=== PATIENT | female | born 1970 | race Caucasian/White ===

== ENCOUNTER 2024-09-08 14:25 | Outpatient (OUT) | payer MEDICARE, OTHER, SELFPAY ==
--- NOTE | 2024-09-08 14:34 | ECG_ITS ---
[facility] Test Date: 2024-09-08 Pat Name: [address] Department: Room: - Gender: Female Hat Block Bench Hand: : 1970 Requested By: KATYA SHEN Order Number: [id number] Reading MD: YOKO ROBLES M.D. Measurements Intervals [place] Rate: 81 P: 17 OR: 162 QRS: -17 QRSD: 85 T: 48 QT: 391 QTc: 456 Interpretive Statements SINUS RHYTHM Normal ECG No previous ECG available for comparison Electronically Signed On 09-08-2024 20:22:04 EDT by YOKO ROBLES M.D.
[2024-09-08 16:03] LABS: Anion Gap 13.8; BUN Creatinine Ratio 12.3; Carbon Dioxide 29.9 mmol/L (21.0-32.0); Chloride 103 mmol/L (98-107); Estimated GFR (African America >60 (>=60 mL/min/1.73m^2); Estimated GFR (Non-African Ame 50 (>=60 mL/min/1.73m^2); Glucose 154 mg/dL (74-106); Potassium 3.7 mmol/L (3.5-5.1); Sodium 143 mmol/L (136-145)
== END 2024-09-08 14:26 | disposition home or self-care (01) ==
PROVIDERS: PCP Internal Medicine; Visit Provider Obstetrics & Gynecology
DX: Z01.810 Encounter for preprocedural cardiovascular examination (principal); Z01.812 Encounter for preprocedural laboratory examination; R10.2 Pelvic and perineal pain; N93.9 Abnormal uterine and vaginal bleeding, unspecified
CPT/HCPCS: 80048; 93005

== ENCOUNTER 2024-10-02 13:42 | Outpatient (OUT) | payer MEDICARE, OTHER, SELFPAY | END 2024-10-02 13:43 | disposition home or self-care (01) | LOC: PST 13:42 | PROVIDERS: PCP Internal Medicine; Visit Provider Obstetrics & Gynecology | DX: Z01.818 Encounter for other preprocedural examination (principal); R10.2 Pelvic and perineal pain; N93.9 Abnormal uterine and vaginal bleeding, unspecified ==

== ENCOUNTER 2024-10-16 07:55 | Day surgery (SDC) | payer MEDICARE, OTHER, SELFPAY ==
[2024-09-08 15:10] VITALS: BP 124/80; PULSE 90; TEMP 36.3; O2SAT 98; BMI 54.8
[2024-10-16 08:02] VITALS: BP 138/83; PULSE 92; TEMP 36.6; O2SAT 96; BMI 55.1
[2024-10-16 08:07] LABS: Basophils Absolute Auto 0.1 10^3/uL (0.0-0.1); Basophils Percent Auto 0.8 % (0.2-2.0); Eosinophils Absolute Auto 0.2 10^3/uL (0.0-0.7); Eosinophils Percent Auto 2.7 % (0.9-7.0); Hematocrit 37.8 % (36.0-48.0); Hemoglobin 12.2 g/dL (12.0-16.0); Immature Granulocytes Abs Auto 0.06 10^3/uL (0.00-0.03); Immature Granulocytes Pct Auto 0.8 % (0.0-0.5); Lymphocytes Absolute Auto 2.8 10^3/uL (1.2-3.8); Lymphocytes Percent Auto 36.7 % (20.5-60.0); Mean Corpuscular HGB Conc 32.3 g/dL (29.9-35.2); Mean Corpuscular Hemoglobin 26.1 pg (26.7-34.0); Mean Corpuscular Volume 80.9 fL (81.0-99.0); Mean Platelet Volume 8.7 fL (9.5-13.5); Monocytes Absolute Auto 0.5 10^3/uL (0.3-0.8); Monocytes Percent Auto 6.6 % (1.7-12.0); Neutrophils Absolute Auto 3.9 10^3/uL (1.4-6.5); Neutrophils Percent Auto 52.4 % (43.0-75.0); Platelet Count 258 10^3/uL (150-450); Red Blood Count 4.67 10^6/uL (4.20-5.40); Red Cell Distribution Width 13.6 % (11.0-15.0); White Blood Count 7.5 10^3/uL (4.0-11.0)
[2024-10-16 08:41] LABS: HCG Quantitative <1 mIU/mL
[2024-10-16] MEDS: LACTATED RINGER'S SOLUTION 1,000 ML 50 ML IV (08:41)
--- NOTE | 2024-10-16 11:17 | PM.ONB ---
Brief Operative Note Date of procedure: 10/16/24 Pre-op diagnosis general: thickend endometrial lining, pelvic pain, aub Post-op diagnosis: same as pre-op Procedure: NAME OF PROCEDURE: [ D&c hysteroscopy ] finding unable to perform dt cervical stenosis PROCEDURE: The patient was taken back to the Operating Room where she was prepped and draped in normal sterile fashion after being placed under general anesthesia without difficulty. She was also placed in the dorsal lithotomy position. A weighted speculum was placed in the patient?s vagina. unable to perform dt cervical stenosis along with significant rectocele making visualization difficult. All instruments were removed from the patient?s vagina. The patient tolerated the procedure well. Sponge, lap and needle counts were correct times two. The patient was taken to the Recovery Room in stable condition.Room in stable condition. Anesthesia: MAC Surgeon: Gerard Man Estimated blood loss (mL): 5 Pathology: none sent Condition: stable Disposition: PACU Urinary Catheter Management Urinary Catheter Management Straight: Cath placed during this visit: no
[2024-10-16 11:22] VITALS: BP 97/52; PULSE 83; TEMP 36.8; O2SAT 98
[2024-10-16 11:37] VITALS: BP 104/60; PULSE 81; O2SAT 97
[2024-10-16 11:52] VITALS: BP 129/75; PULSE 75; O2SAT 98
== END 2024-10-16 12:10 | disposition home or self-care (01) ==
PROVIDERS: PCP Internal Medicine; Visit Provider Obstetrics & Gynecology
PROC: (CPT 952; principal; 2024-10-16 09:35)
DX: R93.89 Abnormal findings on diagnostic imaging of other specified body structures (principal); Z53.8 Procedure and treatment not carried out for other reasons; N88.2 Stricture and stenosis of cervix uteri; R10.2 Pelvic and perineal pain; N93.9 Abnormal uterine and vaginal bleeding, unspecified; G47.33 Obstructive sleep apnea (adult) (pediatric); I10 Essential (primary) hypertension; R56.9 Unspecified convulsions; G20.A1 Parkinson's disease without dyskinesia, without mention of fluctuations; K21.9 Gastro-esophageal reflux disease without esophagitis
CPT/HCPCS: 58558; 36415; 84702; 85025; J2003; J2250; J2405; J2704; J3010